=== PATIENT | female | born 1995 | race Caucasian/White ===

== ENCOUNTER 2023-02-17 16:40 | Day surgery (SDC) | payer BC ==
[2023-02-17] MEDS ORDERED: hydrALAZINE 20 MG/ML VIAL SLOW IVP PRN (17:05)
[2023-02-17 17:17] VITALS: BMI 35.6
[2023-02-17 17:46] LABS: Fetal Membranes Rupture No Membranes Rupture (No Rupture)
== END 2023-02-17 19:47 | disposition home or self-care (01) ==
LOC: CSHLD/OP 16:40
PROVIDERS: ATTEND Obstetrics & Gynecology
DX: O47.03 False labor before 37 completed weeks of gestation, third trimester (principal); O24.415 Gestational diabetes mellitus in pregnancy, controlled by oral hypoglycemic drugs; Z79.899 Other long term (current) drug therapy; Z79.84 Long term (current) use of oral hypoglycemic drugs; Z91.048 Other nonmedicinal substance allergy status; Z3A.35 35 weeks gestation of pregnancy
CPT/HCPCS: 76815; 84112; 87480; 87510; 87660